=== PATIENT | female | born 1935 | race Caucasian/White ===

== ENCOUNTER → 2016-05-22 15:08 | Outpatient (CLI) | payer MEDICARE, OTHER ==
[2011-03-22 20:05] VITALS: BMI 24.4
== END | disposition home or self-care (01) ==
LOC: D.MAMMO 09:45
DX: Z12.31 Encounter for screening mammogram for malignant neoplasm of breast (principal)

== ENCOUNTER 2016-07-05 10:58 | Emergency (ER) | payer MEDICARE, OTHER ==
[2011-03-22 20:05] VITALS: BMI 24.4
[2016-07-05 11:48] LABS: APPEARANCE CLEAR (CLEAR); COLOR YELLOW (YELLOW); GLUCOSE NEGATIVE (NEGATIVE); KETONE NEGATIVE (NEGATIVE); LEUKOCYTE ESTERASE NEGATIVE (NEGATIVE); NITRITE NEGATIVE (NEGATIVE); PROTEIN NEGATIVE (NEGATIVE); SPECIFIC GRAVITY 1.005 (1.005-1.020)
[2016-07-05 11:49] LABS: BILIRUBIN NEGATIVE (NEGATIVE); UROBILINOGEN NORMAL (NORMAL)
[2016-07-05 12:16] LABS: BASOPHILS 0.4 % (0-2); EOSINOPHILS 2.4 % (0-7); HEMATOCRIT 42.4 % (36.0-48.0); HEMOGLOBIN 14.3 g/dL (12-16); IMMATURE GRANULOCYTES 0.2 % (0-5); LYMPHOCYTES 21.5 % (15-50); MCH 31.5 pg (26.0-34.0); MCHC 33.7 g/dL (31.0-37.0); MCV 93.4 fL (80.0-100.0); MEAN PLATELET VOLUME 9.7 fL (7.4-10.4); MONOCYTES 7.6 % (2-11); NEUTROPHILS 67.9 % (40-80); PLATELET COUNT 206 10x3/uL (130-400); RBC 4.54 10x6/uL (4.00-5.40)
[2016-07-05 12:30] LABS: ALBUMIN 3.8 g/dL (3.4-5.0); ALKALINE PHOSPHATASE 51 U/L (46-116); ALT (SGPT) 24 U/L (10-68); BILIRUBIN - TOTAL 0.53 mg/dL (0.2-1.3); CALC OSMOLALITY 284 mosm/kg (275-300); CARBON DIOXIDE 33.3 mmol/L (21.0-32.0); CHLORIDE - SERUM 104 mmol/L (98-107); CREATININE - SERUM 0.9 mg/dL (0.6-1.3); GLUCOSE 120 mg/dL (74-106); POTASSIUM - SERUM 3.9 mmol/L (3.5-5.1); PROTEIN - SERUM 6.8 g/dL (6.4-8.2); SODIUM 142 mmol/L (136-145); UREA NITROGEN 16 mg/dL (7-18); eGFR NON AFRICAN AMERICAN 63 mL/min (90-120)
[2016-07-05 12:39] LABS: AMYLASE - SERUM 66 U/L (25-115); LIPASE 173 U/L (73-393); PRO BNP 316 pg/mL (0-450)
[2016-07-05 12:41] LABS: TROPONIN-I < 0.017 ng/mL (0.000-0.060)
== END 2016-07-05 12:50 | disposition home or self-care (01) ==
LOC: D.ER 10:58
PROVIDERS: Family Medicine
DX: R42 Dizziness and giddiness (principal); A15.9 Respiratory tuberculosis unspecified; I10 Essential (primary) hypertension

== ENCOUNTER → 2017-10-12 20:13 | Outpatient (CLI) | payer MEDICARE, OTHER ==
[2011-03-22 20:05] VITALS: BMI 24.4
== END | disposition home or self-care (01) ==
LOC: D.MAMMO 15:45
DX: Z12.31 Encounter for screening mammogram for malignant neoplasm of breast (principal)

== ENCOUNTER 2018-10-20 09:00 | Outpatient (CLI) | payer MEDICARE, OTHER ==
[2011-03-22 20:05] VITALS: BMI 24.4
== END 2018-10-20 10:00 | disposition home or self-care (01) ==
LOC: D.MAMMO 09:00
PROVIDERS: ATTEND Emergency Medicine
DX: Z12.31 Encounter for screening mammogram for malignant neoplasm of breast (principal)

== ENCOUNTER → 2019-02-28 08:56 | Outpatient (CLI) | payer MEDICARE, OTHER ==
[2011-03-22 20:05] VITALS: BMI 24.4
--- NOTE | 2019-03-01 08:54 | EC ---
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 Ao 109 cm/sec RVOT 74 cm/sec RA cm/sec PA 101 cm/sec AV Gradient Peak 4.74 mmHg AV Mean 2.23 mmHg AV Area 1.8 cm MV Gradient Peak 4.13 mmHg MV Mean 2.26 mmHg MV Area cm COMMENTS: Concession Stand Attendant: 2 GIGI QUINONEZ Leasing Sales Consultant: 3 Dr. Covarrubias TAPE# PACS Pericardial Effusion N DATE OF SERVICE: Adequate 2-D echo, Color-Flow and Spectral Doppler, and M-mode No LVH. LV internal dimensions are normal. Wall motion is normal. EF is greater than or equal to 55%. Aortic valve sclerotic. No evidence of stenosis by Doppler interrogation. Left atrium is normal at 3.0 cm. Mitral valve shows no prolapse. Trace MR. Right-sided chambers are grossly normal. Trace TR. TRANSINT:[id number] Voice Confirmation ID: [id number] DOCUMENT ID: [id number] ECHOCARDIOGRAM REPORT [id number] DOMINGUEZ RAMOS,SANJUANA Irving MD at 0854 CC: [id number] DICTATION DATE: 02/28/191323 ATTENDANT COIN OPERATED LAUNDRY: 02/28/192128 DEP CLI 02/28/19 [place] [id number] [place] [id number]
== END | disposition home or self-care (01) ==
LOC: D.HCCECHO 08:56
PROVIDERS: ATTEND Internal Medicine Interventional Cardiology
DX: I25.10 Atherosclerotic heart disease of native coronary artery without angina pectoris (principal)

== ENCOUNTER 2020-08-16 14:30 | Outpatient (CLI) | payer MEDICARE, OTHER ==
[2011-03-22 20:05] VITALS: BMI 24.4
== END 2020-08-16 23:59 | disposition home or self-care (01) ==
LOC: D.MAMMO 14:30
PROVIDERS: ATTEND Emergency Medicine
DX: Z12.31 Encounter for screening mammogram for malignant neoplasm of breast (principal)